=== PATIENT | female | born 1965 | race African-American/Black ===

== ENCOUNTER → 2018-11-17 | Outpatient (CLI) | payer BC ==
[2014-09-13 09:00] VITALS: BP 110/52
[~2018-11-17] MED LIST: CHOL100013 PO; FERR325T58 PO
--- NOTE | 2018-11-18 13:58 | RAD ---
DATE: 11/17/2018 EXAM: MAMMO LAURA SCREENING BILATERAL HISTORY: Routine screening COMPARISON: 11/01/2017, 06/16/2013 This study was interpreted with the benefit of Computerized Aided Detection (CAD). Breast Density: HETERO The breast parenchyma is heterogenously dense, which could reduce sensitivity of mammography. Breast parenchyma level C. FINDINGS: 2-D and 3-D tomosynthesis imaging was performed in CC and MLO projections. The fibroglandular tissues are heterogeneous. There is a 16 mm smooth nodule in the upper outer left breast posteriorly with an adjacent biopsy clip along its margin. Reportedly the biopsy produced benign findings. The nodule appears unchanged in size. There is architectural distortion superolaterally in the right breast best seen on the tomosynthesis images. A similar appearance was present on the previous study. This apparently represents the site of a previous biopsy, again, with reportedly benign results. No new or enlarging breast densities are seen. Minimal benign calcification is present. No suspicious microcalcifications have developed. IMPRESSION: 1. Post biopsy findings as described above. 2. No mammographic evidence of malignancy in either breast. BI-RADS CATEGORY: 2 BENIGN FINDING(S) RECOMMENDED FOLLOW-UP: 12M 12 MONTH FOLLOW-UP PQRS compliance statement: Patient information was entered into a reminder system with a target due date for the next mammogram. Mammography is a sensitive method for finding small breast cancers, but it does not detect them all and is not a substitute for careful clinical examination. A negative mammogram does not negate a clinically suspicious finding and should not result in delay in biopsying a clinically suspicious abnormality. "Our facility is accredited by the [employer] Mammography [employer]."
== END | disposition home or self-care (01) ==
LOC: MAMMO 16:06
PROVIDERS: ATTEND Family Medicine
DX: Z12.31 Encounter for screening mammogram for malignant neoplasm of breast (principal)
CPT/HCPCS: 77063; 77067

== ENCOUNTER → 2020-03-28 | Outpatient (CLI) | payer BC ==
[2014-09-13 09:00] VITALS: BP 110/52
--- NOTE | 2020-03-29 12:22 | RAD ---
BILATERAL SCREENING MAMMOGRAM, 3-D History: Routine screening. Comparison: 06/16/2013, 11/01/2017, 11/17/2018. Technique: MLO and CC digital tomosynthesis (3D) images obtained. Radiologist reviewed these images on dedicated workstation. Findings: Breast Tissue Density B : There are scattered areas of fibroglandular density. Asymmetry involving the posterior left breast is present proximally 6.8 cm is just above the nipple line on the MLO projection. This may have been present on previous exams and may not be apparent due to summation of breast parenchyma. Mass involving the left upper outer breast with a biopsy clip marker is again seen without significant change. Distortion involving the right upper breast posteriorly is similar upon correlation with previous exams in this patient with reported bilateral breast biopsy history. There is a small mass at the right lower inner breast which is more evident than on immediate prior exam although no significant change in size as suspected on the basis tomographic images. It is not seen on older prior exams. It is 3.5 cm from the nipple and measures 0.4 cm diameter. No suspicious calcific effusions or new distortion. IMPRESSION: Spot compression of the left upper breast asymmetry is recommended. Ultrasound may be needed. Spot compression of the right lower inner breast finding is recommended. Ultrasound may be needed. Separately, repeat right MLO image in order to include more of the posterior right upper breast is recommended. BI-RADS Category 0: Incomplete: Need additional imaging evaluation. The images were reviewed with computer-aided detection. Patient information is entered into reminder system with a target due date for the next screening mammogram. Mammography is the most sensitive method for finding small breast cancers, but it does not detect them all and is not a substitute for careful clinical examination. A negative mammogram does not negate a clinically suspicious finding and should not result in delay in biopsying a clinically suspicious abnormality. "Our facility is accredited by the [employer] Mammography [employer]." Electronically signed by: Elijah Guaman MD (03/29/2020 12:19 PM) [id number]
== END | disposition home or self-care (01) ==
LOC: MAMMO 14:38
PROVIDERS: ATTEND Family Medicine
DX: Z12.31 Encounter for screening mammogram for malignant neoplasm of breast (principal); N64.89 Other specified disorders of breast
CPT/HCPCS: 77063; 77067

== ENCOUNTER → 2020-04-18 | Outpatient (CLI) | payer BC ==
[2014-09-13 09:00] VITALS: BP 110/52
--- NOTE | 2020-04-18 11:11 | RAD ---
EXAM: 1. BILATERAL DIGITAL DIAGNOSTIC MAMMOGRAPHY. 2. BILATERAL BREAST ULTRASOUND. HISTORY: Indeterminate findings on mammographic screening. Additional imaging is requested. TECHNIQUE: Digital images are obtained with spot compression and left MLO, and right CC and MLO projections. A full field right MLO view is also obtained. COMPARISON: 03/28/2020, 11/17/2018. COMPOSITION: C. The breasts are heterogeneously dense, which may obscure small masses. FINDINGS: On the left, the asymmetric density of concern posteriorly and superiorly on the MLO projection resolves to its former appearance on spot compression. Sonography of the left upper outer breast reveals normal parenchyma at this site. A benign nodule status post prior biopsy is noted elsewhere. On the right, a 3.5 mm nodule within the lower inner breast persists on spot compression. On today's sonography, this may correspond with a complicated cyst measuring 4.5 x 2 x 3 mm at the 5:00 position 3 cm from the nipple. There is no suspicious sonographic finding. BI-RADS CATEGORY: 3: Probably Benign. RECOMMENDATION: 1. 6 month follow-up right mammography to confirm stability of a small nodule inferomedially, which may correspond with a benign complicated cysts sonographically. Sonography if necessary. Electronically signed by: Seferino Cruz MD (04/18/2020 11:08 AM) [id number]
== END | disposition home or self-care (01) ==
LOC: MAMMO 10:13
PROVIDERS: ATTEND Family Medicine
DX: R92.2 Inconclusive mammogram (principal); N63.14 Unspecified lump in the right breast, lower inner quadrant
CPT/HCPCS: 77066; 76641-50

== ENCOUNTER → 2021-05-10 | Outpatient (CLI) | payer BC ==
[2014-09-13 09:00] VITALS: BP 110/52
--- NOTE | 2021-05-10 14:02 | RAD ---
EXAM: 1. BILATERAL DIGITAL 3-D DIAGNOSTIC MAMMOGRAPHY. 2. RIGHT BREAST ULTRASOUND. HISTORY: The patient returns at 12 months following recommendation for 6 month follow-up on the right . TECHNIQUE: Bilateral full field digital images were obtained in CC and MLO projections with tomosynth esis. Computer-aided detection was applied. Sonography of the right lower inner breast was also perfo rmed. COMPARISON: 04/18/2020, 03/28/2020, 11/17/2018. COMPOSITION: B. There are scattered areas of fibroglandular density. FINDINGS: The small circumscribed nodule of prior concern within the right lower inner breast is mamm ographically stable in size. Appears to contain a punctate calcification. On today's sonography, ther e is no suspicious correlate. A previously noted small cyst has resolved. Only normal parenchyma is n ow visualized. Images of the right axilla reveal a normal-appearing lymph node. On the left, a nodule at the 12:00 position is stable and contains a postbiopsy clip. Another circums cribed or obscured nodules are also stable and likely benign. Scattered and vascular calcifications a re benign. There is no suspicious mammographic finding. BI-RADS CATEGORY: 2: Benign. RECOMMENDATION: 1. Routine screening mammography in one year. If mammography demonstrates dense breast tissue (heterogenously dense or extremely dense, category C or D), which could hide abnormalities, and if other risk factors for breast cancer have been identifi ed, supplemental screening tests that may be suggested by the ordering physician may be of benefit. D ense breast tissue, in and of itself, is a relatively common condition. Therefore, this information i s not provided to cause undue concern, but rather to raise awareness and to promote discussion with t he referring physician regarding the presence of other risk factors, in addition to dense breast tiss ue. The results of this mammography examination is provided to the patient and referring physician. T he patient should contact their referring physician if any questions or concerns exist regarding this report. PQRS compliance statement - Patient information was entered into a reminder system with a target due date for the next mammogram. "Our facility is accredited by the [employer] Mammography [employer]." Electronically signed by: Seferino Cruz MD (05/10/2021 2:00 PM) [id number]
== END ==
LOC: MAMMO 13:13
PROVIDERS: ATTEND Family Medicine
DX: N63.21 Unspecified lump in the left breast, upper outer quadrant (principal); N63.14 Unspecified lump in the right breast, lower inner quadrant; R92.8 Other abnormal and inconclusive findings on diagnostic imaging of breast
CPT/HCPCS: 76641; 77066